=== PATIENT | female | born 1980 | race Caucasian/White ===

== ENCOUNTER 2019-11-22 05:25 | Emergency (ER) | payer OTHER, SELFPAY ==
[~2019-11-22] VITALS: Ht 170.2 cm; Wt 62.6 kg
[2019-11-22 05:28] VITALS: BP 149/85
--- NOTE | 2019-11-22 05:30 | NUR ---
DR. THOMAS AT BEDSIDE FOR MEDICAL EVALUATION.
--- NOTE | 2019-11-22 05:31 | NUR ---
PT ASSESSMENT COMPLETED BY DR. THOMAS , NO NURSING INTERVENTIONS NEEDED AT THIS TIME.
[2019-11-22 05:38] VITALS: BP 149/85
--- NOTE | 2019-11-22 05:38 | NUR ---
Patient discharged with v/s stable. Written and verbal after care instructions given and explained. Patient verbalized understanding. Ambulatory with steady gait. All questions addressed prior to discharge. Advised to follow up with PMD.
== END 2019-11-22 05:38 | disposition home or self-care (01) ==
LOC: MED 05:25 → EEVIPCON 05:25 → MED 05:38
DX: J02.9 Acute pharyngitis, unspecified (principal); M79.10 Myalgia, unspecified site; Z20.828 Contact with and (suspected) exposure to other viral communicable diseases
CPT/HCPCS: 87081; 99283; U0003